=== PATIENT | female | born 1950 | race Caucasian/White ===

== ENCOUNTER 2019-08-27 07:49 | Outpatient (CLI) | payer MEDICARE, OTHER, SELFPAY ==
[2019-08-27 08:29] VITALS: BMI 24.7
--- NOTE | 2019-08-27 08:30 | NMCV_ITS ---
NM chandler perf SPECT r/s* [id number] Faith Persaud Age: 68 Gender: F : 1950 Exam Date: 08/27/2019 08:30 Ordering Phys: Ryan Garcia Technologist: JERRY Almonte Exam Location: [facility] Indications: Chest pain STRESS TEST Please see separate stress test report in [facility] for full findings IMAGE PROTOCOL Radiopharmaceutical Dose (mCi) Administration Site Administered by Rest: Tc-99m 10.6 IV JERRY Almonte Sestamibi Stress:Tc-99m 32.5 IV JERRY Almonte Sestamibi Rest: 27-Aug-2019 60 Discovery 630 Stress: 27-Aug-2019 60 Discovery 630 0.4mg Lexiscan. Images obtained in supine and prone position. SPECT RESULTS Technical Quality: Excellent Raw Data Analysis: Normal Image Corrections: No attenuation or motion correction applied Summed Stress Score: 2 Summed Rest Score: 9 Summed Difference Score: 0 PERFUSION FINDINGS Patchy areas of decreased aseptic in the inferior, inferolateral and apical regions. No significant reversibility was noted in these regions. FUNCTIONAL RESULTS (calculated via Gated SPECT) Stress Image LV EF (%): 86 Stress EDV (mL):43 TID: 0.78 Stress ESV (mL):6 FUNCTIONAL FINDINGS: Segmental wall motion analysis revealing no gross wall motion normalities. IMPRESSIONS 1. Myocardial perfusion imaging revealing patchy areas of persistent decreased tracer uptake in the apical regions suggestive of myocardial scarring versus attenuation artifacts. 2. Normal LV ejection fraction of 86%. 3. LV wall motion analysis revealing no gross wall motion normalities. 4. Normal LV volume. No significant coronary ischemia, based on the above findings Dr Annika Patton MD FACC (Electronically Signed) Final Date: 27 August 2019 15:23 S
--- NOTE | 2019-08-27 08:30 | ECG_ITS ---
NAME OF STUDY: LEXISCAN SESTAMIBI STRESS TEST INDICATION: Chest Pain PROCEDURE: Lexiscan/sestamibi/sestamibi stress test At the baseline, the EKG revealed normal sinus rhythm with normal ST-T's. The baseline blood pressure was 124/56 mm Hg with a heart rate of 68 beats/min. Lexiscan was infused over a period of 20 seconds. A total of 0.4 milligrams of Lexiscan was infused. The stress phase was continued for a total of 5 minutes. Heart rate at the end of the stress phase was 100 with a blood pressure 131/67. The EKG at the peak infusion revealed no significant changes. Sestamibi was injected 20 seconds after the Lexiscan infusion. Blood pressure at the end of the recovery phase was 127/65 with a heart rate of 100 per minute. CONCLUSION: 1. No significant EKG changes with the LexiScan infusion 2. No LexiScan induced chest pain or cardiac arrhythmia 3. Normal blood pressure and heart rate response 4. Sestamibi/sestamibi perfusion scan pending; see separate report. Electronically Signed On 08-28-2019 16:16:40 CITY AUDITOR by Annika Patton M.D. [email or web address]
--- NOTE | 2019-08-27 09:57 | SUR.PREOP ---
Patient reports no pain or discomfort prior to the start of the procedure.
[2019-08-27] MEDS: regadenoson 0.4 Mg/5 ml Syringe IVP (09:58)
[2019-08-27 10:10] VITALS: BP 126/58; PULSE 98
== END 2019-08-27 07:50 | disposition home or self-care (01) ==
LOC: CDL 07:59
PROVIDERS: Family Provider Family Medicine; PCP Family Medicine; Visit Provider Family Medicine
DX: R07.9 Chest pain, unspecified (principal)
CPT/HCPCS: 78452; 93017; A9500; J2785

== ENCOUNTER → 2024-08-12 12:43 | Outpatient (BNVA) | payer MEDICARE, OTHER, SELFPAY | PROVIDERS: Family Provider Family Medicine; PCP Family Medicine; Visit Provider Internal Medicine Cardiovascular Disease | DX: R07.9 Chest pain, unspecified (principal); I20.89 Other forms of angina pectoris; I25.10 Atherosclerotic heart disease of native coronary artery without angina pectoris; I10 Essential (primary) hypertension | CPT/HCPCS: 93005; 99204 ==

== ENCOUNTER 2024-08-16 07:22 | Outpatient (CLI) | payer MEDICARE, OTHER, SELFPAY ==
[2024-08-16] VITALS (14 sets, daily range): BP systolic 106–136; BP diastolic 55–74; PULSE 56–70; RESP 12–20; TEMP 36.5; O2SAT 90–96; BMI 25.1
--- NOTE | 2024-08-16 07:30 | XACV_ITS ---
Exam Room: 2 Ht: 160 cm Wt: 64 kg BSA: 1.70 m2 Gender: Female : 1950 Any Known Allergies: No known allergies Exam Priority: Routine Procedure(s): Procedure Description: Diagnostic procedure Procedure Description: Left Heart Catheterization Procedure Description: Left ventriculography Procedure Description: Coronary Angiography SANDOR, Kirkpatrick; Diagnostic Cath Status: Elective Diagnostic Findings * Left Main has no disease. * Left Anterior Descending has no disease. * Circumflex has no disease. * Distal Right Coronary Artery: moderate 50% stenosis, GIA: 3 flow. * Coronary angiography shows right dominance. Conclusions 1. There is moderate coronary artery disease with one vessel disease. LM, LAD and LCx has luminal irregularities without significant stenosis. 2. All duong are normal. 3. Normal left ventricular systolic function. Ejection fraction of 60%. Recommendations * Continue current medical management and risk factor modification. Diagnostic RX Recommendation: medical therapy and/or counseling Ventriculography Ejection Fraction: 60.0 % Pressures Phase:Rest AO : 139 / 69 ( 97 ) @ 11:12:00 AM 150 / 65 ( 99 ) @ 11:30:00 AM 148 / 49 ( 91 ) @ 11:30:00 AM LV : 143 / -1 / 19 @ 11:28:00 AM 133 / 0 / 20 @ 11:30:00 AM 143 / 0 / 19 @ 11:30:00 AM Valves Phase:DefaultPhase AV : 0.0 @ 11:33:58 AM AV Mean Gradient: 0.0 @ 11:33:58 AM Clinical Evaluation EBL: 5mL-10mL Procedural Details Procedure Consent Obtained. Admit Source: Out Patient. Pre-Procedure Time Out. Identified patient by full name and date of as verbalized by the patient/guarantor. Does the consent match the physician's order: Yes. Accurate & Complete Informed Consent: Yes. Inpatient/Outpatient History & Physical on Chart: Yes. If H&P is completed, is and addenduem needed: No; If yes, is the addendum complete: N/A. Visualize and Verify Site with Patient/Guarantor: N/A. Relevant Radiology Images available: Yes. The risks, benefits, and alternatives of sedation and/or procedure were discussed by physician. The patient agrees to continue. Procedure started. [facility] Clinical Fraility Score: 3: Managing Well. 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 Chest Pain Symptom Assessment: Typical Angina Symptoms. Correct patient, site and procedure confirmed by cath team. Current diagnosis: Unstable angina. PERRLA. 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 Lungs clear x 5 lobes. IV Site on Arrival: 20 gauge in the left anticubital. IV Fluids: 0.9% NaCl at KVO. 0 mL infused prior to medical laboratory technician. Pre Procedural Pulses: bilateral radial was 3+. Pre Procedural Pulses: bilateral posterior tibial was 2+. Pre Procedural Pulses: right dorsalis pedis was 3+. Pre Procedural Pulses: left dorsalis pedis was 2+. Oxygen started at 2liters/min via nasal canula. right radial was prepped with chloroprep then draped in the usual sterile fashion. right groin was prepped with chloroprep then draped in the usual sterile fashion. Physician notified. Baseline sample Acquired. HR: 60 BPM. Physician arrived. Physician scrubbed in. Immediate Pre-Procedure Time Out. Correct Patient: Yes; Correct Procedure: Yes; Correct Site: Yes; Correct Patient Position: Yes; Correct Supplies: Yes; Dried Flammable Prep: Yes; Blood Products Available: No;. Lidocaine 1% infiltrated to the right radial. Arterial access obtained. Unable to advance access wire. Wire and needle out. Manual pressure held. Arterial access obtained. A 5 comoran TIG catheter in over wire. Multiple views taken of left coronary artery. Catheter redirected to the RCA. Multiple views taken of right coronary artery. Catheter removed over the exchange wire. A 5 comoran Angled Pig catheter in over wire. Unable to cross aortic valve. Catheter removed over the exchange wire. A 5 comoran Joce catheter in over wire. Catheter and wire advanced to LV. Catheter removed over the exchange wire. A 5 comoran Angled Pig catheter in over wire. Wire out. EDP Sample taken: LV 143/-2,19; HR: 68 BPM; SpO2: 98%. LV gram performed in DRAKE @ 10 mL/second for a total of 30 mL. EDP Sample taken: LV 133/-1,20; HR: 60 BPM; SpO2: 97%. Pullback taken: LV 143/-1,19; AO 150/65(99); Mean: 0mmHg, Peak to Peak: 0mmHg, SEP: 6sec/min; HR: 62 BPM; SpO2: 98%. Catheter removed over the exchange wire. Wire out. Physician scrubbed out. Post Procedure: Pulses reassessed and unchanged. PERRLA. 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 No VTE prophylaxis required. Medication's Wasted: Lidocaine 1% = 18 mL. Medication's Wasted: Nitro = 49.8 mg. Medication's Wasted: Heparin = 1000 units. Total IV fluids: 70 mL. Post-op diagnosis: Nonobstructive CAD, Patent prior stents. Complications: None. Estimated blood loss: 5mL-10mL. A TR Band was successful obtaining hemostatsis at the Right Radial artery insertion site. Responsiveness - Normal response to verbal stimuli; alert and oriented, PERRLA. Airway - Unaffected, no intervention required; spontaneous ventilation. Circulation: W/N/L, pulses unchanged. Nausea/Vomiting: No. Procedure completed. Patient transferred by wheelchair to CPRU. Vital chart was stopped. Access Site Site: Right Radial artery Sheath Size: 6 Fr Hemostasis Method: TR Band Hemostasis Success: Successful Procedure Medications Start: 11:03 AM Stop: 11:03 AM Medication: Versed 1 mg and Fentanyl 25 mcg Route: I.V. Start: 11:05 AM Stop: 11:05 AM Medication: Versed 1 mg and Fentanyl 25 mcg Route: I.V. Start: 11:09 AM Stop: 11: AM Medication: Nitrogylcerin Amount: 200 mcg Route: I.A. Start: 11:17 AM Stop: 11:17 AM Medication: Heparin Amount: 5000 units Route: I.V. Start: 11:18 AM Stop: 11:18 AM Medication: Fentanyl Amount: 25 mcg Route: I.V. Start: 11:23 AM Stop: 11:23 AM Medication: Fentanyl Amount: 25 mcg Route: I.V. I, the attending physician, have reviewed and verified all procedure medications. Yes, all medications given per verbal order History/Risk Factors Hypertension: No Dyslipidemia: Yes Peripheral Arterial Disease (PAD): No Myocardial Infarction (MS): No Obesity: No Renal Disease: No Prior Interventions PCI: No CABG: No Valve Surgery: No Report Signatures Finalized by Jose Kirkpatrick MD on 08/30/2024 12:59 AM
[2024-08-16 08:07] LABS: Basophils % 0.7 %; Eosinophils # 0.1 10^3/uL (0.0-0.8); Eosinophils % 1.6 %; Hematocrit 39.2 % (36-47); Lymphocytes # 1.6 10^3/uL (0.8-4.8); Lymphocytes % 26.8 %; Mean Corpuscular HGB Conc 32.9 g/dL (30-55); Mean Corpuscular Hemoglobin 31.1 pg (27-33); Mean Corpuscular Volume 94.5 fl (85-98); Mean Platelet Volume 11.3 fL (7.4-10.4); Monocytes # 0.6 10^3/uL (0.2-0.9); Monocytes % 10.1 %; Neutrophils # 3.72 10^3/uL (1.8-7.7); Neutrophils % 60.6 %; Nucleated Red Blood Cells % 0 %; Platelet Count 150 10^3/cmm (157-399); Red Blood Count 4.15 10^6/uL (3.85-5.65); White Blood Count 6.13 10^3/uL (3.29-11.43)
[2024-08-16 08:27] LABS: Anion Gap 17.3 (5-19); Blood Urea Nitrogen 19 mg/dL (8-23); Calcium 9.5 mg/dL (8.5-10.5); Carbon Dioxide 24 mmol/L (22-29); Chloride 105 mmol/L (98-107); Glucose 108 mg/dL (65-115); Osmolality Calculated 297 mOsm/kg (285-295); Potassium 4.3 mmol/L (3.5-5.1); Sodium 142 mmol/L (136-145)
[2024-08-16] MEDS: aspirin 325 mg Tablet PO (09:30)
[2024-08-16] MEDS: diphenhydrAMINE 50 mg Capsule PO (09:30)
--- NOTE | 2024-08-16 10:59 | P.HPUD_ITS ---
Surgery/Procedure H&P Update DATE OF PROCEDURE: August 16, 2024 DATE H&P PERFORMED: 08/16/24 H&P UPDATE INFORMATION: I have reviewed H&P completed within last 30 days, I have examined patient prior to procedure, No changes to prior documentation and Changes to prior documentation as noted here PREOP DIAGNOSIS: Unstable angina PLANNED PROCEDURE: Operation Date: 08/16/24 08:30 Proposed Procedures p Cardiac Catheterization - [facility] w/wo LV & Coros(Left) - Jose Kirkpatrick MD PATIENT REASSESSED PRIOR TO SEDATION, WITH NO CHANGE NOTED: Yes PHYSICAL EXAM: alert, oriented x 3, clear to auscultation bilaterally and regular rate & rhythm AIRWAY EVAL/ANESTHESIA PLAN: ASA II, Risks, benefits & alternatives of sedation and/or procedure discussed and Patient agrees to continue as planned
--- NOTE | 2024-08-16 11:40 | SUR.PHASEII ---
Patient arrived from r and d lab technician. Status post cardiac catheterization via the right radial approach. TR band in place to right radial artery. No hematoma formation noted. Verbal post cath instructions went over with the patient/family. Call light within reach. Informed to call for needs. Vitals and assessments per flowsheet.
--- NOTE | 2024-08-16 11:59 | SUR.PHASEII ---
post cath fluids running as ordered per md post order with out difficulty.
== END 2024-08-16 15:03 | disposition home or self-care (01) ==
PROVIDERS: PCP Family Medicine; Visit Provider Internal Medicine Cardiovascular Disease
DX: I25.110 Atherosclerotic heart disease of native coronary artery with unstable angina pectoris (principal); E78.5 Hyperlipidemia, unspecified; I10 Essential (primary) hypertension; Z87.891 Personal history of nicotine dependence
CPT/HCPCS: 36415; 80048; 85025; 93458; 96374; 99152; 99153; C1769; C1887; C1894; J1644; J2250; J3010; J3490; J7030; Q0163; Q9967